=== PATIENT | female | born 1975 | race Asian ===

== ENCOUNTER 2019-08-27 07:03 | Day surgery (SDC) | payer BC ==
[~2019-08-27] VITALS: Ht 147.3 cm; Wt 43.4 kg
[2019-08-27] MEDS ORDERED: SODIUM CHLORIDE 0.9% 1,000 ML IV SCH (07:14)
[2019-08-27 07:23] VITALS: BP 126/90
[2019-08-27] MEDS ORDERED: AMIT10TA PO (07:33)
[2019-08-27 07:41] LABS: BASOPHILS # (AUTO) 0.02 x10^3/uL (0-0.1); BASOPHILS % (AUTO) 0 % (0-1); EOSINOPHILS % (AUTO) 2 % (1-7); LYMPHOCYTES # (AUTO) 1.85 x10^3/uL (1-3.4); LYMPHOCYTES % (AUTO) 32 % (22-44); MD NO; MEAN CORPUSCULAR HEMOGLOBIN 31.4 pg (27.0-34.8); MEAN CORPUSCULAR HGB CONC 33.2 g/dL (32.4-35.8); MEAN CORPUSCULAR VOLUME 94.4 fL (80-100); MEAN PLATELET VOLUME 7.8 fL (7.4-10.4); MONOCYTES # (AUTO) 0.36 x10^3/uL (0.2-0.8); MONOCYTES % (AUTO) 6 % (2-9); NEUTROPHILS # (AUTO) 3.52 x10^3/uL (1.8-6.8); NEUTROPHILS % (AUTO) 60 % (42-75); PLATELET COUNT 218 x10^3/uL (130-400); RED BLOOD COUNT 4.07 x10^6/uL (3.82-5.3); RED CELL DISTRIBUTION WIDTH 12.9 % (9.6-15.2)
[2019-08-27] MEDS ORDERED: MONT10TA11 PO (07:41)
[2019-08-27] MEDS ORDERED: METO25TA91 PO (07:41)
[2019-08-27] MEDS ORDERED: SERT25TA3 PO (07:41)
[2019-08-27] MEDS ORDERED: BUSP7.5T3 PO (07:41)
[2019-08-27] MEDS ORDERED: BACL20TA PO (07:44)
[2019-08-27] MEDS ORDERED: IBUP-1221 PO (07:45)
[2019-08-27 07:50] LABS: ANION GAP 5 mmol/L (5-15); CALCIUM 8.4 mg/dL (8.5-10.1); CHLORIDE 110 mmol/L (98-107); CREATININE 0.76 mg/dL (0.55-1.02)
[2019-08-27] MEDS ORDERED: MIDAZOLAM 1 MG/ML, 5ML ONE (07:50)
[2019-08-27] MEDS ORDERED: ISOPROTERENOL 0.2MG/ML, 5ML ONE (07:50)
[2019-08-27] MEDS ORDERED: ADENOSINE 6 MG/2 ML ONE (07:50)
[2019-08-27] MEDS ORDERED: FENTANYL PF 100 MCG/2ML ONE (07:50)
[2019-08-27] MEDS ORDERED: LIDOCAINE 2%, 20ML ONE (07:50)
[2019-08-27] MEDS ORDERED: MORPHINE SULFATE 4 MG/ML, 1ML ONE (08:34)
[2019-08-27] MEDS ORDERED: IBUPROFEN 400 MG PO PRN (10:00)
[2019-08-27] MEDS ORDERED: OXYcodone/APAP 5/325MG TABLET ONE (10:42)
[2019-08-27] MEDS ORDERED: OXYcodone/APAP 5/325MG TABLET PO ONE (11:00)
[2019-08-27] MEDS ORDERED: MONTELUKAST 10 MG TABLET PO SCH (21:00)
[2019-08-27] MEDS ORDERED: AMITRIPTYLINE 10 MG TABLET PO SCH (21:00)
[2019-08-28] MEDS ORDERED: BUSPIRONE HCL 7.5 MG PO SCH (09:00)
[2019-08-28] MEDS ORDERED: SERTRALINE HCL 25 MG PO SCH (09:00)
[2019-08-28] MEDS ORDERED: TEMPLATE NON-FORMULARY MED. (Baclofen** 20 MG) PO SCH (09:00)
== END 2019-08-27 14:16 | disposition home or self-care (01) ==
LOC: CACL 07:03
PROVIDERS: ATTEND Internal Medicine Cardiovascular Disease
DX: I47.1 Supraventricular tachycardia (principal); Z88.1 Allergy status to other antibiotic agents; Z88.2 Allergy status to sulfonamides; Z88.8 Allergy status to other drugs, medicaments and biological substances; Z72.89 Other problems related to lifestyle; Z79.899 Other long term (current) drug therapy
CPT/HCPCS: 36415; 71046; 80048; 85025; 93613; 93621; 93623; 93653; C1730; C1769; C1894; C2630; J2250; J2270; J0153; J3010